=== PATIENT | male | born 1975 | race Caucasian/White ===

== ENCOUNTER 2021-03-14 17:23 | Emergency (ER) | payer SELFPAY ==
[2021-03-14] MEDS ORDERED: BUFFERED LIDOCAINE 10 ML SYRINGE IU ONE (18:43)
--- NOTE | 2021-03-14 19:13 | XRAY Report ---
PROCEDURE: Hand 3 View LT INDICATIONS: injury over 2nd MCP TECHNIQUE: 3 views of the hand(s) acquired. COMPARISON: None FINDINGS: Bones: No fractures or dislocations. No suspicious bony lesions. Soft tissues: No suspicious soft tissue calcifications. IMPRESSION: No evidence of acute bony abnormality of the left hand. Reviewed by: Alonso Godwin MD on 03/14/2021 7:11 PM PST Approved by: Alonso Godwin MD on 03/14/2021 7:11 PM [facility] Station ID: [id number]
[2021-03-14] MEDS ORDERED: BACITRACIN ZINC OINT 1 PACKET TOP STA (19:15)
[2021-03-14] MEDS ORDERED: TETANUS/DIPHTHERIA/PERTUSSIS 0.5 ML SYRINGE IM ONE (19:15)
--- NOTE | 2021-03-14 19:18 | ED Physician Documentation ---
PD HPI SKIN - Stated complaint Stated Complaint: LT FINGER VS HAND SAW - Chief complaint Chief Complaint: Laceration - History obtained from History obtained from: Patient - Additional information Additional information: Patient comes emergency department for chief complaint of laceration to left hand with hand saw. Patient states he was sawing some branches when the saw slipped and the blade cut across the dorsum of his left hand over the second MCP joint. Patient states that this just happened this afternoon. He is not sure when his last tetanus shot was. He has been able to move the finger without difficulty, though he states the wound is bleeding a lot. No other complaints at this time. Review of Systems Ten Systems: 10 systems reviewed and negative Constitutional: reports: Reviewed and negative Eyes: reports: Reviewed and negative Ears: reports: Reviewed and negative Nose: reports: Reviewed and negative Throat: reports: Reviewed and negative Cardiac: reports: Reviewed and negative Respiratory: reports: Reviewed and negative GI: reports: Reviewed and negative : reports: Reviewed and negative Skin: reports: Laceration (s) Musculoskeletal: reports: Reviewed and negative Neurologic: reports: Reviewed and negative Psychiatric: reports: Reviewed and negative Endocrine: reports: Reviewed and negative Immunocompromised: reports: Reviewed and negative PD PAST MEDICAL HISTORY - Past Medical History Past Medical History: No Cardiovascular: None Respiratory: None Neuro: None Endocrine/Autoimmune: None GI: None : None HEENT: None Psych: None Musculoskeletal: None Derm: None - Past Surgical History Past Surgical History: No - Present Medications Home Medications: Ambulatory Orders Medication Instructions Recorded Confirmed No Known Home Medications 03/14/21 03/14/21 - Allergies Allergies/Adverse Reactions: Allergies Allergy/AdvReac Type Severity Reaction Status Date / Time Penicillins AdvReac Nausea Verified 03/14/21 17:27 - Social History Does the pt smoke?: No Smoking Status: Never smoker Does the pt drink ETOH?: Yes ETOH Use: Liquor Does the pt have substance abuse?: No - Immunizations Immunizations are current?: No Immunizations: TDAP >10years/unknown PD ED PE NORMAL - Vitals Vital signs reviewed: Yes - General General: Alert and oriented X 3, No acute distress, Well developed/nourished - HEENT HEENT: Atraumatic, PERRL, EOMI, Moist mucous membranes - Neck Neck: Supple, no meningeal sign - Cardiac Cardiac: Strong equal pulses - Respiratory Respiratory: No respiratory distress - Derm Derm: Normal color, Warm and dry, No rash, Other (Macerated, flap shaped laceration approximately 5 cm total length involving skin and tissue superficial to the left second MCP joint. No tendon, bone, or joint capsule and floor of wound. Small active, pulsatile, arteriolar bleeding. No foreign bodies.) - Extremities Extremities: No deformity, Other (Full extensor strength to resistance at MCP, PIP, and DIP joints of left index finger.) - Neuro Neuro: Alert and oriented X 3 - Psych Psych: Normal mood, Normal affect Results - Vitals Vitals: Vital Signs - 24 hr 03/14/21 17:28 Temperature 36.4 C L Heart Rate 100 Respiratory 16 Rate Blood Pressure 126/85 H O2 Saturation 96 Oxygen O2 Source Room air - Rads (name of study) Left hand x-ray Radiology: Final report received, EMP read indepedently, See rad report (Negative) Procedures - Laceration (location) Left hand Length in cm: 5 Wound type: Irregular, Flap, Into subcut fat, Clean Neurovascular status: Sensory intact, Motor intact, Other (Small, pulsatile, arterial or bleeding.) Tendon involvement: Tendon intact Anesthesia: Lidocaine 1%, Lidocaine 1% with epi Wound preparation: Hibiclens, Irrigated copiously NS, Debrided moderately, Wound explored, To the base, debridement of wound edges (traumatic laceration/avulsion), Multiple flaps aligned Skin layer closure: Nylon, Interrupted, Size #-0 - enter number (4.0), Sutures - enter # (9) Other: Patient tolerated well, No complications, Neurovascular intact, Dressing applied, Tetanus booster given PD MEDICAL DECISION MAKING - ED course Complexity details: reviewed results, re-evaluated patient, considered differential, d/w patient ED course: Laceration was repaired as above. X-ray of hand was negative. The patient was updated on his tetanus and instructed regarding care of the wound at home. He understands he is not to do any strenuous work with his hand and in fact should flex at the MCP as little as possible. We have discussed follow-up for suture removal in 7 to 10 days, as well as the usual indications for return Departure - Departure Disposition: 01 Home, Self Care Clinical Impression: Laceration Condition: Stable Instructions: ED Laceration Hand Comments: Please keep your wound clean and dry. The suture should stay in for 7 to 10 days before being removed by medical professional. You may follow-up in the walk-in or urgent care for suture removal, or your primary care physician's office. If you are unable to follow-up in any of these venues, you may return to the emergency department. Laceration repairs are done sterilely, and in general, they do not get infected. As such, it is not standard practice to prescribe antibiotics for lacerations except under certain circumstances. However, if at any time you notice redness and swelling progressively spreading away from the wound, or if the wound begins to look "mushy" and drain pus, you should return to the emergency department for reevaluation immediately. Your tetanus shot has been updated today. Your next 1 will be needed in 10 years
[2021-03-14] MEDS ORDERED: BACITRACIN ZINC OINT 1 PACKET TOP ONE (19:38)
[2021-03-14 19:44] VITALS: BP 149/79
== END 2021-03-14 20:05 | disposition home or self-care (01) ==
LOC: ED 17:23
DX: S61.412A Laceration without foreign body of left hand, initial encounter (principal); W27.0XXA Contact with workbench tool, initial encounter; Y93.H9 Activity, other involving exterior property and land maintenance, building and construction; Z23 Encounter for immunization
CPT/HCPCS: 12002; 73130; 90471; 90715; 99282; 99283; A9270

== ENCOUNTER 2022-05-03 16:50 | Emergency (ER) | payer OTHER ==
[2022-05-03 17:20] LABS: BASOPHILS # (AUTO) 0.1 10^3/uL (0.0-0.1); BASOPHILS % (AUTO) 0.6 %; EOSINOPHILS # (AUTO) 0.2 10^3/uL (0.0-0.7); EOSINOPHILS % (AUTO) 1.1 %; HCT - HEMATOCRIT 47.1 % (42.0-52.0); HGB - HEMOGLOBIN 15.8 g/dL (14.0-18.0); LYMPHOCYTES # (AUTO) 1.7 10^3/uL (1.5-3.5); LYMPHOCYTES % (AUTO) 10.8 %; MEAN CORPUSCULAR HEMOGLOBIN 32.4 pg (27.0-31.0); MEAN CORPUSCULAR HGB CONC 33.5 g/dL (32.0-36.0); MEAN CORPUSCULAR VOLUME 96.5 fL (80.0-94.0); MEAN PLATELET VOLUME 11.2 fL (7.4-11.4); MONOCYTES # (AUTO) 0.8 10^3/uL (0.0-1.0); MONOCYTES % (AUTO) 5.1 %; NEUTROPHILS # (AUTO) 12.6 10^3/uL (1.5-6.6); PLT - PLATELET COUNT 213 10^3/uL (130-450); RED BLOOD COUNT 4.88 10^6/uL (4.70-6.10); RED CELL DISTRIBUTION WIDTH 11.9 % (12.0-15.0); WHITE BLOOD COUNT 15.3 x10^3/uL (4.8-10.8)
--- NOTE | 2022-05-03 17:21 | ED Physician Documentation ---
History of Present Illness - Stated complaint Stated Complaint: CP/ABD DISCOMFOR - Chief complaint Chief Complaint: Abd Pain - Additonal information Additional information: 47-year-old male presents emergency department for evaluation of left upper abdominal pain as well as chest pain. Reports a fairly serious fall about 3 years ago. Following that fall he has had persistent left-sided abdominal pain. Intermittently he has had bloody stools. He had bloody stools almost daily for about 2 years but never sought medical help. His last episode of bloody stool was 1 month ago. He states the pain in the left upper quadrant has gotten acutely worse over the last 3 or 4 days. He has some radiation to his chest. No fevers. No vomiting. He denies melena. He is a pack per day smoker. He does have high blood pressure and is not treated for it. He has not seen a doctor in quite some time. No history of previous colonoscopy. History obtained from patient. Good historian Review of Systems Constitutional: reports: Reviewed and negative Cardiac: reports: Chest pain / pressure. denies: Palpitations Respiratory: reports: Reviewed and negative GI: reports: Abdominal Pain. denies: Nausea, Vomiting, Hematemesis : reports: Reviewed and negative Skin: reports: Reviewed and negative PD PAST MEDICAL HISTORY - Past Medical History Cardiovascular: None Respiratory: None Neuro: None Endocrine/Autoimmune: None GI: None : None HEENT: None Psych: None Musculoskeletal: None Derm: None - Past Surgical History Past Surgical History: No - Present Medications Home Medications: Ambulatory Orders Medication Instructions Recorded Confirmed No Known Home Medications 03/14/21 03/14/21 - Allergies Allergies/Adverse Reactions: Allergies Allergy/AdvReac Type Severity Reaction Status Date / Time Penicillins AdvReac Nausea Verified 05/03/22 16:52 - Social History Does the pt smoke?: No Smoking Status: Never smoker Does the pt drink ETOH?: Yes Does the pt have substance abuse?: No - Immunizations Immunizations are current?: No Immunizations: TDAP >10years/unknown PD ED PE NORMAL - General General: Alert and oriented X 3, No acute distress - HEENT HEENT: Atraumatic - Neck Neck: Supple, no meningeal sign, No adenopathy - Cardiac Cardiac: RRR, No murmur - Respiratory Respiratory: No respiratory distress, Clear bilaterally - Abdomen Abdomen: Normal bowel sounds, Soft. No: Non tender (Nonperitoneal. No guarding no rebound. 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 No: Prolonged QT QRS: Normal Ischemia: ST elevation c/w repol Compare to prior EKG: Old EKG unavailable Computer interpretation: Agree with computer - Labs Labs: Laboratory Tests 05/03/22 05/03/22 05/03/22 17:17 17:17 17:17 WBC 15.3 H RBC 4.88 Hgb 15.8 Hct 47.1 MCV 96.5 H MCH 32.4 H MCHC 33.5 RDW 11.9 L Plt Count 213 MPV 11.2 Neut # (Auto) 12.6 H Lymph # (Auto) 1.7 [place] # (Auto) 0.8 Eos # (Auto) 0.2 Baso # (Auto) 0.1 Absolute Nucleated RBC 0.00 Nucleated RBC % 0.0 Sodium 136 Potassium 4.1 Chloride 102 Carbon Dioxide 24 Anion Gap 10.0 BUN 17 Creatinine 0.8 Estimated GFR (MDRD) 103 Glucose 94 Calcium 9.0 Total Bilirubin 1.1 H AST 20 ALT 19 Alkaline Phosphatase 70 Troponin I High Sens 5.0 Total Protein 7.3 Albumin 4.0 Globulin 3.3 Albumin/Globulin Ratio 1.2 Lipase 29 Urine Color Urine Clarity Urine pH Ur Specific [place] Urine Protein Urine Glucose (UA) Urine Ketones Urine Occult Blood Urine Nitrite Urine Bilirubin Urine Urobilinogen Ur Leukocyte Esterase Urine RBC Urine WBC Ur Squamous Epith Cells Urine Bacteria Urine Mucus Ur Microscopic Review Urine Culture Comments 05/03/22 17:26 WBC RBC Hgb Hct MCV MCH MCHC RDW Plt Count MPV Neut # (Auto) Lymph # (Auto) [place] # (Auto) Eos # (Auto) Baso # (Auto) Absolute Nucleated RBC Nucleated RBC % Sodium Potassium Chloride Carbon Dioxide Anion Gap BUN Creatinine Estimated GFR (MDRD) Glucose Calcium Total Bilirubin AST ALT Alkaline Phosphatase Troponin I High Sens Total Protein Albumin Globulin Albumin/Globulin Ratio Lipase Urine Color DARK YELLOW Urine Clarity CLEAR Urine pH 6.0 Ur Specific [place] >=1.030 H Urine Protein NEGATIVE Urine Glucose (UA) NEGATIVE Urine Ketones 40 H Urine Occult Blood SMALL H Urine Nitrite NEGATIVE Urine Bilirubin NEGATIVE Urine Urobilinogen 0.2 (NORMAL) Ur Leukocyte Esterase NEGATIVE Urine RBC 6-10 H Urine WBC 0-3 Ur Squamous Epith Cells RARE Squamous Urine Bacteria None Seen Urine Mucus Few Strands Ur Microscopic Review INDICATED Urine Culture Comments NOT INDICATED - Rads (name of study) CT abdomen Radiology: Final report received (No visualized acute abdominal or pelvic process. Diverticulosis.) CXR Radiology: EMP read indepedently (no acute process) PD Medical Decision Making - ED course Complexity details: reviewed results, re-evaluated patient, considered differential, d/w patient ED course: 47-year-old male presents emergency department for evaluation of upper epigastric abdominal pain that he has had intermittently for much of the last year but worse over the last week or so. He does have some radiation to his chest. He is also intermittently reporting bloody stools. Patient states that he has had a very stressful year. He smokes 1 pack/day tobacco a day as well as have being started to drink heavily given a recent break-up. He is currently trying to get established with a primary care doctor and admits he has not seen one for quite some time. Here in the emergency department his clinical exam was rather benign. Very minimal epigastric tenderness was elicited without guarding or rebound. He does have modest hypertension in the ER but no fevers tachycardia were noted. I did obtain a CBC and electrolytes with no worrisome findings per my interpretation. Urine showed no signs of infection. Given the radiation of pain to the chest, his age as well as heavy tobacco and alcohol use an EKG was performed and was found to be nonischemic. No ACS clinically today. His troponin is negative. His chest x-ray did not have any findings consistent with pneumonia, pneumothorax or pleural effusion. We did perform a CT of the abdomen given the reported bloody stools for the last 2 years. We do have findings of diverticulosis but no other acute worrisome findings such as a bowel obstruction, perforation. He likely has a gastritis and will be recommended to start taking omeprazole. He will try and establish with primary care provider as he would likely benefit from a colonoscopy moving forward. We did discuss the usual emergent return precautions. Departure - Departure Disposition: 01 Home, Self Care Clinical Impression: Epigastric pain Condition: Stable Record reviewed to determine appropriate education?: Yes Instructions: ED PUD Vs Gastritis Comments: John you came to the emergency department today because intermittently you have been having some upper epigastric abdominal pain and have reported some bloody stools over the last few years. Here in the emergency department we did obtain an EKG that did not show any worrisome findings. We obtained a CBC that showed no anemia or worrisome electrolyte abnormalities. A CT completed of your abdomen showed no findings to suggest a bowel obstruction, perforation of your bowel or obvious mass. I suspect that much of the cause of your symptoms is gastritis or stomach i nflammation. Please begin taking omeprazole every day for at least the next 2 weeks. Avoid tobacco caffeine and alcohol if you are able. You can try stopping the omeprazole after 1 to 2 weeks and if your symptoms are better that is a good sign but if they return you will still need to have an EGD done. You will also need to have a screening colonoscopy for your reports of bloody stool. Please schedule with a primary care provider to get a screening physical exam, labs and discussed modifying your risk factors for heart disease, high blood pressure strokes etc.
[2022-05-03 17:35] LABS: ALBUMIN/GLOBULIN RATIO 1.2 (1.0-2.2); BILIRUBIN,TOTAL 1.1 mg/dL (0.2-1.0); CREATININE 0.8 mg/dL (0.6-1.2); POTASSIUM 4.1 mmol/L (3.5-5.0); TOTAL PROTEIN 7.3 g/dL (6.7-8.2)
--- NOTE | 2022-05-03 18:21 | CT Report ---
PROCEDURE: ABDOMEN/PELVIS WO INDICATIONS: left flank pain TECHNIQUE: Noncontrast 5 mm thick sections acquired from the diaphragms to the symphysis. 5 mm coronal and sagi ttal reformats were then performed. For radiation dose reduction, the following was used: automated exposure control, adjustment of mA and/or kV according to patient size. COMPARISON: None. FINDINGS: Image quality: Excellent. ABDOMEN: Lung bases: Lung bases are clear. Heart size is normal. Solid organs: Liver and spleen are normal in size. Gallbladder is unremarkable. Pancreas is normal in contours. No adrenal nodules. Kidneys are normal in size, without hydronephrosis or nephrolithi asis. Bilateral simple renal cysts. Peritoneum and bowel: Unenhanced bowel loops demonstrate normal wall thickness and caliber. No free fluid or air. Minimal scattered diverticula. Nodes and vessels: No retroperitoneal or mesenteric adenopathy by size criteria. Aorta and inferior vena cava are normal in caliber. Miscellaneous: No ventral hernias. PELVIS: Genitourinary: Bladder wall thickness is normal. Miscellaneous: No inguinal hernias or adenopathy. Bones: No suspicious bony lesions. No vertebral body compression fractures. IMPRESSION: No visualized acute abdominal or pelvic process. Diverticulosis. Reviewed by: Katrin Simons MD on 05/03/2022 6:20 PM PST Approved by: Katrin Simons MD on 05/03/2022 6:20 PM PST Station ID: [id number]
[2022-05-03 18:30] LABS: GLUCOSE, URINE (UA) NEGATIVE (NEGATIVE); KETONES,URINE (UA) 40 mg/dL (NEGATIVE); LEUKOCYTE ESTERASE, URINE NEGATIVE (NEGATIVE); NITRITE,URINE NEGATIVE (NEGATIVE); OCCULT BLOOD,URINE SMALL (NEGATIVE); PROTEIN,URINE NEGATIVE (NEGATIVE); UROBILINOGEN,URINE 0.2 (NORMAL) E.U./dL (NORMAL)
[2022-05-03] MEDS ORDERED: LIDOCAINE VISCOUS 2% 15 ML ORAL SYRINGE MM STA (18:31)
[2022-05-03] MEDS ORDERED: MAG HYDROX/AL HYDROX/SIMETH 30 ML UDC PO STA (18:31)
[2022-05-03 18:33] LABS: BILIRUBIN,URINE NEGATIVE (NEGATIVE); CLARITY,URINE CLEAR (CLEAR); ICTOTEST,URINE NEGATIVE
[2022-05-03 18:40] LABS: BACTERIA,URINE None Seen /HPF (None Seen); MUCUS,URINE Few Strands; SQUAMOUS EPITHELIAL CELL,UR RARE Squamous (<= Few); WBC,URINE 0-3 /HPF (0-3)
--- NOTE | 2022-05-03 19:15 | XRAY Report ---
PROCEDURE: Chest 1 View X-Ray INDICATIONS: chest pain TECHNIQUE: One view of the chest was acquired. COMPARISON: None. FINDINGS: Surgical changes and devices: None. Lungs and pleura: No pleural effusions or pneumothorax. Lungs are clear. Mediastinum: Mediastinal contours appear normal. Heart size is normal. Bones and chest wall: No suspicious bony lesions. Overlying soft tissues appear unremarkable. IMPRESSION: No acute pulmonary process. Reviewed by: Katrin Simons MD on 05/03/2022 7:14 PM PST Approved by: Katrin Simons MD on 05/03/2022 7:14 PM [facility] Station ID: [id number]
[2022-05-03 19:18] VITALS: BP 169/108
== END 2022-05-03 19:18 | disposition home or self-care (01) ==
LOC: ED 16:50
DX: R10.13 Epigastric pain (principal); I10 Essential (primary) hypertension; F17.200 Nicotine dependence, unspecified, uncomplicated
CPT/HCPCS: 36415; 71045; 74176; 80053; 81001; 83690; 84484; 85025; 93005; 99283; 99284; A9270; 81003; 87086

== ENCOUNTER 2022-08-18 12:30 | Outpatient (CLI) | payer OTHER ==
--- NOTE | 2022-08-18 16:59 | XRAY Report ---
PROCEDURE: Shoulder 2 View BILAT INDICATIONS: BILATERAL SHOULDER JOINT PAIN TECHNIQUE: 3 views of each shoulder was obtained COMPARISON: None. FINDINGS: Bones: No fractures or dislocations. No suspicious bony lesions. Visualized ribs appear intact. Soft tissues: No suspicious soft tissue calcifications. IMPRESSION: Normal bilateral shoulder radiographs Reviewed by: Kamran Jaramillo MD on 08/18/2022 3:57 PM [facility] Approved by: Kamran Jaramillo MD on 08/18/2022 3:57 PM [facility] Station ID: [id number]
== END 2022-08-18 12:31 | disposition home or self-care (01) ==
LOC: DI.S 12:30
PROVIDERS: ATTEND Nurse Practitioner Family
DX: M25.511 Pain in right shoulder (principal); M25.512 Pain in left shoulder

== ENCOUNTER 2023-03-16 08:00 | Outpatient (CLI) | payer SELFPAY ==
--- NOTE | 2023-03-17 17:35 | XRAY Report ---
PROCEDURE: Ribs w/PA Chest RT INDICATIONS: CONTUSION OF THORAX, RIGHT TECHNIQUE: 3 views of the right ribs were acquired, along with a single view chest. COMPARISON: Chest x-ray 05/03/2022 FINDINGS: Surgical changes and devices: None. Bones and chest wall: There is a minimally displaced fracture within the lateral right 10th rib. No suspicious bony lesions. Overlying soft tissues appear unremarkable. Lungs and pleura: No pleural effusions or pneumothorax. Lungs appear clear. Mediastinum: Mediastinal contours appear normal. Heart size is normal. IMPRESSION: Mildly displaced right lateral 10th rib fracture. Reviewed by: Katrin Simons MD on 03/17/2023 5:33 PM PST Approved by: Katrin Simons MD on 03/17/2023 5:33 PM PST Station ID: [id number]
== END 2023-03-16 23:59 | disposition home or self-care (01) ==
LOC: DI.S 08:00
PROVIDERS: ATTEND Physician Assistant
DX: S20.01XA Contusion of right breast, initial encounter (principal); S22.31XA Fracture of one rib, right side, initial encounter for closed fracture

== ENCOUNTER 2023-10-08 00:06 | Emergency (ER) | payer OTHER ==
[2023-10-08 00:18] VITALS: BP 110/90; O2SAT 94
--- NOTE | 2023-10-08 00:30 | ED Physician Documentation ---
History of Present Illness - Stated complaint Stated Complaint: FIT - Chief complaint Chief Complaint: General - History obtained from History obtained from: Patient, Police - Additonal information Additional information: Patient brought to the emergency department by PD for medical clearance for confinement. Patient has no medical complaints, denies injury, denies pain PD PAST MEDICAL HISTORY - Past Medical History Cardiovascular: None Respiratory: None Neuro: None Endocrine/Autoimmune: None GI: None : None HEENT: None Psych: None Musculoskeletal: None Derm: None - Past Surgical History Past Surgical History: No - Present Medications Home Medications: Ambulatory Orders Medication Instructions Recorded Confirmed No Known Home Medications 03/14/21 10/08/23 - Allergies Allergies/Adverse Reactions: Allergies Allergy/AdvReac Type Severity Reaction Status Date / Time Penicillins AdvReac Nausea Verified 10/08/23 00:07 - Social History Does the pt smoke?: No Smoking Status: Never smoker Does the pt drink ETOH?: Yes Does the pt have substance abuse?: No - Immunizations Immunizations are current?: No Immunizations: TDAP >10years/unknown - POLST Patient has POLST: No PD ED PE NORMAL - Vitals Vital signs reviewed: Yes - General General: Alert and oriented X 3, No acute distress, Well developed/nourished - HEENT HEENT: Atraumatic, PERRL, EOMI - Cardiac Cardiac: RRR, No murmur - Respiratory Respiratory: No respiratory distress, Clear bilaterally - Neuro Neuro: Alert and oriented X 3 Results - Vitals Vitals: Vital Signs - 24 hr 10/08/23 00:07 Temperature 36.5 C Heart Rate 78 Respiratory 16 Rate Blood Pressure 110/90 H O2 Saturation 94 Oxygen O2 Source Room air PD Medical Decision Making - ED course Complexity details: considered differential, d/w patient ED course: No medical complaints, patient is medically safe and appropriate for release to police custody. Departure - Departure Disposition: 01 Home, Self Care Clinical Impression: Encounter for medical screening examination Condition: Good Instructions: ED Screening Exam Medical Nonurgent Discharge Date/Time: 10/08/23 00:36
== END 2023-10-08 00:36 | disposition home or self-care (01) ==
LOC: ED 00:06
DX: Z02.89 Encounter for other administrative examinations (principal)
CPT/HCPCS: 99281; 99282